=== PATIENT | female | born 1985 | race African-American/Black ===

== ENCOUNTER → 2019-09-24 08:26 | Outpatient (CLI) | payer OTHER ==
[2011-02-19 10:32] VITALS: BMI 40.0
[2019-09-24 09:05] LABS: INR 1.02 (0.85-1.17); PROTIME 13.3 SECONDS (11.6-15.0)
[2019-09-24 09:08] LABS: BASOPHILS 0.5 % (0-2); CALC OSMOLALITY 277 mosm/kg (275-300); CALCIUM 8.5 mg/dL (8.5-10.1); CARBON DIOXIDE 28.6 mmol/L (21.0-32.0); CHLORIDE - SERUM 105 mmol/L (98-107); CREATININE - SERUM 0.9 mg/dL (0.6-1.3); EOSINOPHILS 2.4 % (0-7); GLUCOSE 104 mg/dL (74-106); HEMATOCRIT 41.7 % (36.0-48.0); HEMOGLOBIN 13.1 g/dL (12-16); IMMATURE GRANULOCYTES 0.1 % (0-5); MCH 26.3 pg (26.0-34.0); MCHC 31.4 g/dL (31.0-37.0); MCV 83.7 fL (80.0-100.0); MEAN PLATELET VOLUME 10.1 fL (7.4-10.4); MONOCYTES 4.5 % (2-11); NEUTROPHILS 66.5 % (40-80); PLATELET COUNT 251 10x3/uL (130-400); POTASSIUM - SERUM 4.1 mmol/L (3.5-5.1); RBC 4.98 10x6/uL (4.00-5.40); RDW 14.5 % (11.5-14.5); SODIUM 139 mmol/L (136-145); UREA NITROGEN 13 mg/dL (7-18); WBC 7.8 10x3/uL (4.8-10.8); eGFR NON AFRICAN AMERICAN 75 mL/min (90-120)
[2019-09-24 09:13] LABS: PLT FUNCT.(P2Y12) PLAVIX 156 PRU (194-418)
== END | disposition home or self-care (01) ==
LOC: D.LAB 08:26
PROVIDERS: ATTEND Student in an Organized Health Care Education/Training Program
DX: I67.1 Cerebral aneurysm, nonruptured (principal); Z01.818 Encounter for other preprocedural examination

== ENCOUNTER 2019-10-06 17:02 | Emergency (ER) | payer OTHER ==
[~2019-10-06] VITALS: Ht 185.4 cm; Wt 134.1 kg
[2019-10-06 17:35] VITALS: Ht 185.4 cm; Wt 134.1 kg
[2019-10-06] MEDS ORDERED: ZOLOFT100 MG PO (17:37)
[2019-10-06] MEDS ORDERED: BUSPAR5 MG (17:37)
[2019-10-06] MEDS ORDERED: PLAVIX75 MG PO (17:37)
[2019-10-06] MEDS ORDERED: ASPIRIN325 MG PO (17:37)
[2019-10-06 20:49] LABS: BASOPHILS 0.5 % (0-2); EOSINOPHILS 2.9 % (0-7); HEMATOCRIT 39.5 % (36.0-48.0); HEMOGLOBIN 12.4 g/dL (12-16); IMMATURE GRANULOCYTES 0.2 % (0-5); LYMPHOCYTES 26.2 % (15-50); MCH 26.3 pg (26.0-34.0); MCHC 31.4 g/dL (31.0-37.0); MCV 83.7 fL (80.0-100.0); MEAN PLATELET VOLUME 10.5 fL (7.4-10.4); MONOCYTES 5.7 % (2-11); NEUTROPHILS 64.5 % (40-80); PLATELET COUNT 274 10x3/uL (130-400); RBC 4.72 10x6/uL (4.00-5.40); RDW 14.7 % (11.5-14.5); WBC 9.2 10x3/uL (4.8-10.8)
[2019-10-06 21:08] LABS: ANION GAP 9.5 mmol/L (8-16); CALCIUM 8.7 mg/dL (8.5-10.1); CARBON DIOXIDE 26.5 mmol/L (21.0-32.0)
[2019-10-06 21:14] LABS: ALBUMIN 3.6 g/dL (3.4-5.0); BILIRUBIN - TOTAL 0.51 mg/dL (0.2-1.3); PROTEIN - SERUM 7.4 g/dL (6.4-8.2)
[2019-10-06] MEDS ORDERED: MEDROL DOSE PACK4 MG PO (22:04)
[2019-10-06] MEDS ORDERED: LISINOPRIL-HCT1 EAC4 PO (22:04)
[2019-10-06 23:10] VITALS: BP 133/86
== END 2019-10-06 23:10 | disposition home or self-care (01) ==
LOC: D.ER 17:02
PROVIDERS: Family Medicine
DX: R51 Headache (principal); R42 Dizziness and giddiness